=== PATIENT | female | born 1945 ===

== ENCOUNTER 2018-02-13 13:33 | Emergency (ER) | payer MEDICARE, OTHER ==
[2018-02-13 13:33] VITALS: BMI 24.7
[2018-02-13 15:06] LABS: URINE BILIRUBIN NEGATIVE (NEGATIVE); URINE BLOOD NEGATIVE (NEGATIVE); URINE GLUCOSE (UA) NEGATIVE (NEGATIVE); URINE LEUKOCYTE ESTERASE NEGATIVE Leu/uL (NEGATIVE); URINE PROTEIN TRACE mg/dL (<30 mg/dL); URINE UROBILINOGEN 0.2 E.U./dL (<1 E.U./dL)
[2018-02-13 15:12] LABS: URINE APPEARANCE CLEAR (CLEAR); URINE COLOR YELLOW (YELLOW)
[2018-02-13 15:13] LABS: URINE BACTERIA TRACE (NEG); URINE EPITHELIAL CELLS 0 - 2 /hpf (0-5); URINE RBC 0 - 2 /hpf (0-2); URINE WBC 0 - 2 /hpf (0-6)
--- NOTE | 2018-02-13 15:21 | ED PDOC ---
Arrival/HPI - General Chief Complaint: Back Pain Time Seen by Provider: 02/13/18 14:09 Historian: Patient - History of Present Illness Narrative History of Present Illness (Text): 02/13/18 72 yo female comes in for evaluation of diffuse lower back pain gradually developed for past 3 days after lifted heavy box. Pt reports, pain is localized over lower back, worse with movement. Otherwise, pt denies known direct trauma or injury, fall, fever, chills, CP, SOB, abd. pain, N/V/D, UTi sx, saddle anesthesia, incontinence, denies weakness, sensory or vascular deficits to B/L LEs. Ambulate to Ed for evaluation, not in any apparent distress. Past Medical History - Provider Review Nursing Documentation Reviewed: Yes - Travel History Have you recently traveled outside [place] w/in the past 3 mons?: No - Infectious Disease Hx of Infectious Diseases: None - Tetanus Immunization Tetanus Immunization: Unknown - Cardiac Hx Cardiac Disorders: Yes Hx Hypertension: Yes - Pulmonary Hx Respiratory Disorders: No - Neurological Hx Neurological Disorder: No - HEENT Hx HEENT Disorder: No - Renal Hx Renal Disorder: No - Endocrine/Metabolic Hx Endocrine Disorders: No - Hematological/Oncological Hx Blood Disorders: No - Integumentary Hx Dermatological Disorder: No - Musculoskeletal/Rheumatological Hx Musculoskeletal Disorders: Yes Hx Arthritis: Yes Hx Falls: No Hx Rheumatoid Arthritis: Yes - Gastrointestinal Hx Gastrointestinal Disorders: Yes Hx Gastroesophageal Reflux: Yes - Genitourinary/Gynecological Hx Genitourinary Disorders: No - Psychiatric Hx Psychophysiologic Disorder: No Hx Substance Use: No - Past Surgical History Past Surgical History: No Previous - Surgical History Other/Comment: TUBAL LIGATION - Anesthesia Hx Anesthesia: No Hx Anesthesia Reactions: No Hx Malignant Hyperthermia: No - Suicidal Assessment Feels Threatened In Home Enviroment: No Family/Social History - Physician Review Nursing Documentation Reviewed: Yes Family/Social History: No Known Family HX Smoking Status: Never Smoked Hx Alcohol Use: No Hx Substance Use: No Hx Substance Use Treatment: No Allergies/Home Meds Allergies/Adverse Reactions: Allergies No Known Allergies Allergy (Verified 02/13/18 13:51) Review of Systems - Review of Systems Constitutional: Normal Eyes: Normal ENT: Normal Respiratory: Normal Cardiovascular: Normal Gastrointestinal: Normal Genitourinary Female: Normal Musculoskeletal: Back Pain Skin: Normal. absent: Rash Neurological: Normal Endocrine: Normal Hemo/Lymphatic: Normal Psychiatric: Normal Physical Exam Vital Signs Temp Pulse Resp BP Pulse Ox 02/13/18 15:01 70 17 115/80 100 02/13/18 13:53 98.2 F 72 16 113/76 95 Temperature: Afebrile Blood Pressure: Normal Pulse: Regular Respiratory Rate: Normal Appearance: Positive for: Well-Appearing, Non-Toxic, Comfortable Pain Distress: Mild Mental Status: Positive for: Alert and Oriented X 3 - Systems Exam Head: Present: Atraumatic Conjunctiva: Present: Normal Mouth: Present: Moist Mucous Membranes Neck: Present: Trachea Midline. No: MIDLINE TENDERNESS, JVD, Bruit Respiratory/Chest: Present: Clear to Auscultation, Good Air Exchange. No: Respiratory Distress, Accessory Muscle Use Cardiovascular: Present: Regular Rate and Rhythm, Normal S1, S2. No: Murmurs Abdomen: No: Tenderness, Distention, Peritoneal Signs, Rebound, Guarding Back: Present: Paraspinal Tenderness (diffuse lumbar, no skin changes, no palpable deformity.). No: CVA Tenderness, Midline Tenderness Upper Extremity: Present: Normal ROM, NORMAL PULSES. No: Deformity Lower Extremity: Present: NORMAL PULSES, Normal ROM. No: Edema, CALF TENDERNESS , Tenderness, Deformity Neurological: Present: GCS=15, Speech Normal, Motor Func Grossly Intact, Normal Sensory Function, Norm Deep Tendon Reflexes Skin: Present: Warm, Dry, Normal Color. No: Rashes Psychiatric: Present: Alert, Oriented x 3 Medical Decision Making ED Course and Treatment: 02/13/18 on re-eval, pt is afebrile, hemodynamicaly stable. Non-toxic. Ambulatory in ED with stable gait. Neck: Supple Lungs: CTA B/L, BS equal B/L. Abd: Benign, (-) guarding, (-) rebound back: (-) CVA tenderness. Neurologicaly intact. UA review (-) Pt has clinical findings c/w lower back strain. Pt advised. ref. to f/u with PMD in 2-3 days for re-evaluation. return to ED if any worsening or new changes. - Lab Interpretations Lab Results: Lab Results 02/13/18 14:50: Urine Color Yellow, Urine Appearance Clear, Urine pH 6.0, Ur Specific [place] 1.025, Urine Protein Trace H, Urine Glucose (UA) Negative, Urine Ketones Negative, Urine Blood Negative, Urine Nitrate Negative, Urine Bilirubin Negative, Urine Urobilinogen 0.2, Ur Leukocyte Esterase Negative, Urine RBC 0 - 2, Urine WBC 0 - 2, Ur Epithelial Cells 0 - 2, Urine Bacteria Trace - Medication Orders Current Medication Orders: Discontinued Medications Tramadol HCl (Ultram) 50 mg PO STAT STA Stop: 02/13/18 14:42 Last Admin: 02/13/18 14:48 Dose: 50 mg MAR Pain Assessment Document 02/13/18 14:48 SF (Rec: 02/13/18 14:48 [id number]) Pain Reassessment Is this a pain reassessment? Yes Sleep Is patient sleeping during reassessment? No Presence of Pain Presence of Pain Yes Disposition/Present on Arrival - Present on Arrival Any Indicators Present on Arrival: No History of DVT/PE: Yes History of Uncontrolled Diabetes: No Urinary Catheter: No History of Decub. Ulcer: No History Surgical Site Infection Following: None - Disposition Have Diagnosis and Disposition been Completed?: Yes Diagnosis: Lower back pain Disposition: HOME/ ROUTINE Disposition Time: 15:17 Patient Plan: Discharge Condition: STABLE Discharge Instructions (ExitCare): Low Back Pain in Adults Print Language: SERBIAN Additional Instructions: Light duty to lower back, avoid heavy lifting, any physical activity for 1-2 weeks Take medication as need Follow up with PMD in 1-2 days for re-evaluation. return to ED if any worsening or new changes. Prescriptions: Gabapentin 300 mg PO HS #10 capsule Methocarbamol [Robaxin] 500 mg PO TID #14 tab traMADol [Ultram] 50 mg PO TID #7 tab
[2018-02-13 15:55] VITALS: O2SAT 99
[2018-02-13 16:02] VITALS: BP 110/69; PULSE 82; RESP 18; TEMP 97.6
== END 2018-02-13 16:01 | disposition home or self-care (01) ==
LOC: ED 13:33
DX: M54.5 Low back pain (principal); I10 Essential (primary) hypertension; M06.9 Rheumatoid arthritis, unspecified

== ENCOUNTER 2018-03-10 10:52 | Inpatient (IN) | payer MEDICARE, OTHER ==
[2018-03-10 11:10] VITALS: BMI 27.4
--- NOTE | 2018-03-10 12:01 | ED PDOC ---
"Arrival/HPI - General Chief Complaint: Back Pain Time Seen by Provider: 03/10/18 11:38 Historian: Patient - History of Present Illness Narrative History of Present Illness (Text): 03/10/18 11:59 A 72 year old female, whose past medical history includes arthritis, hypertension and DVT no longer on anticoagulants, presents to the emergency department complaining of right back pain x 3 weeks. Patient stated after lifting her from a wheelchair, she felt an acute pain. Patient stated pain is getting worsen, and it worsen with movement. Patient denies fever, sob , cp, palpitation, abdominal pain, urinary symptoms, or abnormal gait. Time/Duration: Other Context: Home Past Medical History - Provider Review Nursing Documentation Reviewed: Yes - Infectious Disease Hx of Infectious Diseases: None - Tetanus Immunization Tetanus Immunization: Unknown - Cardiac Hx Cardiac Disorders: Yes Hx Hypertension: Yes - Pulmonary Hx Respiratory Disorders: No - Neurological Hx Neurological Disorder: No - HEENT Hx HEENT Disorder: No - Renal Hx Renal Disorder: No - Endocrine/Metabolic Hx Endocrine Disorders: No - Hematological/Oncological Hx Blood Disorders: No - Integumentary Hx Dermatological Disorder: No - Musculoskeletal/Rheumatological Hx Musculoskeletal Disorders: Yes Hx Arthritis: Yes Hx Falls: No Hx Rheumatoid Arthritis: Yes - Gastrointestinal Hx Gastrointestinal Disorders: Yes Hx Gastroesophageal Reflux: Yes - Genitourinary/Gynecological Hx Genitourinary Disorders: No - Psychiatric Hx Psychophysiologic Disorder: No Hx Substance Use: No - Past Surgical History Past Surgical History: No Previous - Surgical History Other/Comment: TUBAL LIGATION - Anesthesia Hx Anesthesia: No Hx Anesthesia Reactions: No Hx Malignant Hyperthermia: No - Suicidal Assessment Feels Threatened In Home Enviroment: No Family/Social History - Physician Review Nursing Documentation Reviewed: Yes Family/Social History: Other (noncontributory) Smoking Status: Never Smoked Hx Alcohol Use: No Hx Substance Use: No Hx Substance Use Treatment: No Allergies/Home Meds Allergies/Adverse Reactions: Allergies No Known Allergies Allergy (Verified 02/13/18 13:51) Home Medications: Home Meds Medication Instructions Recorded Confirmed Ibuprofen [Motrin Tab] 1 tab PO PRN PRN 03/10/18 03/10/18 Review of Systems - Review of Systems Constitutional: Normal. absent: Fatigue, Weight Change, Fevers, Night Sweats Eyes: Normal ENT: Normal Respiratory: Normal. absent: SOB, Cough, Sputum Cardiovascular: Normal Gastrointestinal: Normal. absent: Abdominal Pain, Nausea, Vomiting Genitourinary Female: Normal. absent: Dysuria, Frequency, Hematuria Musculoskeletal: Back Pain Skin: Normal. absent: Rash Neurological: Normal. absent: Headache, Dizziness, Focal Weakness, Gait Changes , Speech Changes, Facial Droop, Disequilibrium, Seizure Endocrine: Normal Hemo/Lymphatic: Normal Psychiatric: Normal Physical Exam Vital Signs Temp Pulse Resp BP Pulse Ox 03/10/18 20:08 65 18 178/99 H 97 03/10/18 17:31 65 18 185/97 H 100 03/10/18 15:53 63 18 152/81 H 98 03/10/18 11:11 98.4 F 68 18 97 03/10/18 11:09 98.4 F 68 18 172/76 H 97 Temperature: Afebrile Blood Pressure: Normal Pulse: Regular Respiratory Rate: Normal Appearance: Positive for: Well-Appearing, Non-Toxic, Comfortable Pain Distress: None Mental Status: Positive for: Alert and Oriented X 3 - Systems Exam Head: Present: Atraumatic, Normocephalic Pupils: Present: PERRL Extroacular Muscles: Present: EOMI Conjunctiva: Present: Normal Mouth: Present: Moist Mucous Membranes Neck: Present: Normal Range of Motion, Trachea Midline. No: Meningeal Signs, MIDLINE TENDERNESS, Paraspinal Tenderness, Lymphadenopathy Respiratory/Chest: Present: Clear to Auscultation, Good Air Exchange. No: Respiratory Distress, Accessory Muscle Use, Wheezes, Retracting, Rhonchi Cardiovascular: Present: Regular Rate and Rhythm, Normal S1, S2. No: Murmurs Abdomen: No: Tenderness, Distention, Peritoneal Signs Back: Present: Normal Inspection, Paraspinal Tenderness ((+) moderate tenderness over right paravertebral tenderness at the level of T11, and T12). No: CVA Tenderness, Midline Tenderness Upper Extremity: Present: Normal Inspection, Normal ROM, NORMAL PULSES, Neurovascularly Intact, Capillary Refill < 2s. No: Cyanosis, Edema Lower Extremity: Present: Normal Inspection, NORMAL PULSES, Normal ROM, Neurovascularly Intact, Capillary Refill < 2 s. No: Edema Neurological: Present: GCS=15, CN II-XII Intact, Speech Normal Skin: Present: Warm, Dry, Normal Color. No: Rashes Psychiatric: Present: Alert, Oriented x 3, Normal Insight, Normal Concentration Medical Decision Making ED Course and Treatment: 03/10/18 20:55 This 72 yo female came c/o right posterior back pain . Physical exam was unremarkable except for tenderness over level T11, and T12. No skin rash. Lungs CTA b/l. Patient has a pmh dvt, so d dimer was order, as well as regular labs. D dimer was elevated. CT angio of chest to r/o PE. Patient a small amount of IV contrast extravasation during CT scan. A different IV line was used too complete CT scan. Warmth compress was applied over left arm. CT scan was negative for PE, however, it shows T12 vertebral Fx. Patient continues with back pain. I paged Dr. Grayson, however she did not call back. I paged house physician. Patient agreed with plan for observation. 03/10/18 21:[address] Jha, house doctor regarding intractable back pain. Also I reviewed CT result which shows lung nodule, density on heart atrium, and vertebral body fracture. I recommended observation, and MRI of T12. Dr. Jha agreed with plan. Re-evaluation Time: 21:06 Reassessment Condition: Re-examined, Improving,but remains with symptoms - Lab Interpretations Lab Results: 03/10/18 12:20 03/10/18 13:25 Lab Results 03/10/18 15:40: D-Dimer, Quantitative > 5250 H 03/10/18 13:25: Sodium 146, Potassium 4.0, Chloride 107, Carbon Dioxide 27, Anion Gap 15, BUN 17, Creatinine 1.1, Est GFR ( Amer) 59, Est GFR (Non- Af Amer) 49, Random Glucose 87, Calcium 9.4, Magnesium 2.0, Total Bilirubin 0.4 , AST 47 H, ALT 49, Alkaline Phosphatase 96, Total Protein 8.1, Albumin 4.1, Globulin 3.9, Albumin/Globulin Ratio 1.0 L 03/10/18 12:50: Urine Color Yellow, Urine Appearance Clear, Urine pH 7.0, Ur Specific [place] 1.010, Urine Protein Trace H, Urine Glucose (UA) Negative, Urine Ketones Negative, Urine Blood Negative, Urine Nitrate Negative, Urine Bilirubin Negative, Urine Urobilinogen 0.2, Ur Leukocyte Esterase Small H, Urine RBC 0 - 2, Urine WBC 2 - 5, Ur Epithelial Cells 1 - 3, Urine Bacteria Few 03/10/18 12:20: WBC 5.6 D, RBC 3.72, Hgb 11.9 L, Hct 35.5 L, MCV 95.4, MCH 32.0 , MCHC 33.5, RDW 13.5, Plt Count 164, MPV 11.5 H, Gran % 59.6, Lymph % (Auto) 26.5, [place] % (Auto) 10.0 H, Eos % (Auto) 3.7, Baso % (Auto) 0.2, Gran # 3.35, Lymph # (Auto) 1.5, [place] # (Auto) 0.6, Eos # (Auto) 0.2, Baso # (Auto) 0.01 I have reviewed the lab results: Yes Interpretation: Abnormal lab values - RAD Interpretation Narrative RAD Interpretations (Text): 03/10/18 20:03 EXAM: CT Angiography Chest With Intravenous Contrast FINDINGS: Pulmonary arteries: Unremarkable. No pulmonary embolism. Aorta: Atherosclerotic changes of the aorta. No thoracic aortic aneurysm. Lungs: 6 mm lung nodule near the blood vessel in the right middle lobe, there is another pleuralbased lung nodule. Three-month followup is recommended. Pleural space: Unremarkable. No significant effusion. No pneumothorax. Heart: There is a soft tissue density noted measuring 1.6 cm on image 42 series 3 ,? continuous with the left atrium on image 44. Echocardiogram evaluation is advised on non- emergent basis. Coronary artery calcification. No significant pericardial effusion. No evidence of RV dysfunction. Bones/joints: There is a fracture line noted involving the T12 vertebral body. It seen on the last images ,incompletely evaluated on this exam. CT of the thoracolumbar spine is advised No dislocation. Soft tissues: Unremarkable. Lymph nodes: Unremarkable. No enlarged lymph nodes. Liver: Fatty infiltration of the liver. Diffuse fatty infiltration of the liver. Gallbladder and bile ducts: Gallstones. KEYSHAINÉSJAREN BEYERMEN | Preliminary Radiology Report Small hiatal hernia. IMPRESSION: 1. 6 mm lung nodule near the blood vessel in the right middle lobe, there is another pleural-based lung nodule. Three-month followup is recommended. 2. There is a soft tissue density noted measuring 1.6 cm on image 42 series 3 , ? continuous with the left atrium on image 44. Echocardiogram evaluation is advised on non-emergent basis. 3. There is a fracture line noted involving the T12 vertebral body. It seen on the last images ,incompletely evaluated on this exam. CT of the thoracolumbar spine is advised . Radiology Orders: 03/10/18 16:04 ANGIO CHEST PE PROTOCOL [CT] Stat - Medication Orders Current Medication Orders: Cephalexin Monohydrate (Keflex) 500 mg PO STAT STA PRN Reason: Protocol Stop: 03/10/18 20:49 Sodium Chloride (Sodium Chloride 0.9%) 1,000 mls @ 75 mls/hr IV .[id number] NITHIN Morphine Sulfate (Morphine) 2 mg IVP Q4H PRN PRN Reason: Pain, severe (8-10) Stop: 03/11/18 09:00 Ondansetron HCl (Zofran Inj) 4 mg IVP Q4H PRN PRN Reason: Nausea/Vomiting Discontinued Medications Sodium Chloride (Sodium Chloride 0.9%) 500 mls @ 999 mls/hr IV .Q31M STA Stop: 03/10/18 19:32 Last Admin: 03/10/18 19:08 Dose: 999 mls/hr eMAR Start Stop Document 03/10/18 19:08 GMD (Rec: 03/10/18 19:08 GMD [id number]) Intravenous Solution Start Date 03/10/18 Start Time 19:08 End Date 03/10/18 End time 19:38 Total Infusion Time 30 Ketorolac Tromethamine (Toradol) 15 mg IVP STAT STA Stop: 03/10/18 19:03 Last Admin: 03/10/18 19:07 Dose: 15 mg MAR Pain Assessment Document 03/10/18 19:07 GMD (Rec: 03/10/18 19:08 D [id number]) Pain Reassessment Is this a pain reassessment? No IVP Administration Document 03/10/18 19:07 GMD (Rec: 03/10/18 19:08 GMD [id number]) Charges for Administration # of IVP Administrations 1 Disposition/Present on Arrival - Present on Arrival Any Indicators Present on Arrival: No History of DVT/PE: Yes History of Uncontrolled Diabetes: No Urinary Catheter: No History of Decub. Ulcer: No History Surgical Site Infection Following: None - Disposition Have Diagnosis and Disposition been Completed?: Yes Diagnosis: Intractable back pain, Closed fracture of thoracic vertebral body, Lung nodule Disposition: HOSPITALIZED Disposition Time: 21:19 Patient Plan: Admission Patient Problems: Current Active Problems Problem Status Onset Closed fracture of thoracic vertebral body Acute Intractable back pain Acute Lung nodule Acute Forms: [employer] (Azerbaijani)"
[2018-03-10 12:44] LABS: BASO # 0.01 K/mm3 (0.0-2.0); BASO % 0.2 % (0.0-3.0); EOS # 0.2 (0.0-0.7); EOS % 3.7 % (1.5-5.0); GRAN # 3.35 (1.4-6.5); GRAN % 59.6 % (50.0-68.0); HEMOGLOBIN 11.9 g/dL (12.0-16.0); LYMPH # 1.5 (1.2-3.4); LYMPH % 26.5 % (22.0-35.0); MEAN CELL VOLUME 95.4 fl (80.0-105.0); MEAN CORPUSCULAR HGB CONC 33.5 g/dl (31.0-37.0); MEAN PLATELET VOLUME 11.5 fl (7.0-11.0); MONO # 0.6 (0.1-0.6); RBC 3.72 10^6/uL (3.5-6.1); RED CELL DISTRIBUTION WIDTH 13.5 % (11.5-14.5); WHITE BLOOD COUNT 5.6 10^3/ul (4.5-11.0)
[2018-03-10 13:25] LABS: URINE APPEARANCE CLEAR (CLEAR); URINE BILIRUBIN NEGATIVE (NEGATIVE); URINE BLOOD NEGATIVE (NEGATIVE); URINE COLOR YELLOW (YELLOW); URINE GLUCOSE (UA) NEGATIVE (NEGATIVE); URINE LEUKOCYTE ESTERASE SMALL Leu/uL (NEGATIVE); URINE PROTEIN TRACE mg/dL (<30 mg/dL); URINE UROBILINOGEN 0.2 E.U./dL (<1 E.U./dL)
[2018-03-10 13:28] LABS: URINE BACTERIA FEW (NEG); URINE RBC 0 - 2 /hpf (0-2)
[2018-03-10 13:48] LABS: ALBUMIN 4.1 g/dL (3.0-4.8); CALCIUM 9.4 mg/dL (8.4-10.5)
[2018-03-10] MEDS ORDERED: Iohexol 350 MG/100 ML VIAL ONE ×2 (16:39→18:30)
[2018-03-10] MEDS ORDERED: Sodium Chloride 0.9% 500 ML IV STA (19:02)
[2018-03-10] MEDS ORDERED: Morphine 2 mg/ml ISec IVP PRN (20:47)
[2018-03-10] MEDS ORDERED: Sodium Chloride 0.9% 1,000 ML IV SCH (21:00)
--- NOTE | 2018-03-10 23:00 | CP.PCM.HP ---
History of Present Illness - History of Present Illness History of Present Illness: Daniel Dawson, PGY-1 History and Physical for Hospitalist Service CC: Lower back pain HPI: Patient is a 70-year-old female with a PMHx of OA, HTN, LLE DVT no longer on anticoagulation, GERD who presents with history of lower back pain for three weeks. Patient is surrounded bedside by daughter and niece, who helped provide most of the history. Patient lifted her out of a wheelchair three weeks ago, and felt sharp pain in her lower back. At that time , patient came to the ER and was sent home with pain medications. Symptoms worsened until last night , with the patient rating the pain 10/10 and patient was crying due to the excruciating pain. Patient took 800 mg of Motrin and that provided some relief. Of note, patient experienced a mechanical fall 2 years ago for which patient complains of chronic lower back pain at baseline. Patient denies headache, sore throat, cough, shortness of breath, chest pain, palpitations, abdominal pain, dysuria, polyuria, new rashes, changes in urinary or bowel habits, changes in ambulation, and numbness in the lower extremities. Past medical history: OA, DVT left peroneal, Hypertension, GERD PSH: tubal ligation Allergies: NKDA Social history: denies smoking, alcohol or drugs Family history : noncontributory, no hx of cancers Meds (provided by patient): Enalapril 10 mg PO, Xeljanz 11 mg Patient lives in [place] with her . Present on Admission - Present on Admission Any Indicators Present on Admission: Yes History of DVT/PE: Yes Review of Systems - Review of Systems Review of Systems: 12 point ROS completed and negative except as described in HPI. Past Patient History - Infectious Disease Hx of Infectious Diseases: None - Tetanus Immunizations Tetanus Immunization: Unknown - Past Social History Smoking Status: Never Smoked - CARDIAC Hx Hypertension: Yes - PULMONARY Hx Respiratory Disorders: No - NEUROLOGICAL Hx Neurological Disorder: No - HEENT Hx HEENT Problems: No - RENAL Hx Chronic Kidney Disease: No - ENDOCRINE/METABOLIC Hx Endocrine Disorders: No - HEMATOLOGICAL/ONCOLOGICAL Hx Blood Disorders: No - INTEGUMENTARY Hx Dermatological Problems: No - MUSCULOSKELETAL/RHEUMATOLOGICAL Hx Arthritis: Yes Hx Falls: Yes - GASTROINTESTINAL Hx Gastroesophageal Reflux: Yes - GENITOURINARY/GYNECOLOGICAL Hx Genitourinary Disorders: No - PSYCHIATRIC Hx Psychophysiologic Disorder: No - SURGICAL HISTORY Other/Comment: TUBAL LIGATION - ANESTHESIA Hx Anesthesia: No Hx Anesthesia Reactions: No Hx Malignant Hyperthermia: No Meds Allergies/Adverse Reactions: Allergies Allergy/AdvReac Type Severity Reaction Status Date / Time No Known Allergies Allergy Verified 02/13/18 13:51 Physical Exam - Constitutional Appears: Well, No Acute Distress - Head Exam Head Exam: ATRAUMATIC, NORMAL INSPECTION, NORMOCEPHALIC - Eye Exam Eye Exam: EOMI, Normal appearance Pupil Exam: PERRL - ENT Exam ENT Exam: Mucous Membranes Moist, Normal Exam - Neck Exam Neck exam: Positive for: Full Rom, Normal Inspection. Negative for: Tenderness - Respiratory Exam Respiratory Exam: Clear to Auscultation Bilateral, NORMAL BREATHING PATTERN. absent: Chest Wall Tenderness, Rales, Rhonchi, Wheezes, Respiratory Distress, Stridor - Cardiovascular Exam Cardiovascular Exam: RRR, +S1, +S2. absent: Gallop, Rubs - GI/Abdominal Exam GI & Abdominal Exam: Soft. absent: Distended, Firm, Guarding, Rebound, Tenderness - Back Exam Back exam: paraspinal tenderness, vertebral tenderness (TTP in lower thoracic region, R>L). absent: CVA tenderness (L), CVA tenderness (R), rash noted - Neurological Exam Neurological exam: Alert, CN II-XII Intact, Normal Gait, Oriented x3, Reflexes Normal Additional comments: full sensory and gross motor intact bilaterally in lower extremities - Psychiatric Exam Psychiatric exam: Normal Affect, Normal Mood - Skin Skin Exam: Dry, Intact, Normal Color, Warm Results - Vital Signs Recent Vital Signs: Last Vital Signs Temp 98.3 F 03/10/18 22:20 Pulse 77 03/10/18 22:20 Resp 20 03/10/18 22:20 BP 148/83 03/10/18 22:20 Pulse Ox 97 03/10/18 20:08 - Labs Result Diagrams: 03/10/18 12:20 03/10/18 13:25 Assessment & Plan - Assessment and Plan (Free Text) Assessment: 72 year old Female who presents with lower thoracic back pain. Thoracic CT angio performed in the ED showed a T12 fracture line. Plan: Lower back pain 2/2 ? T12 fracture - In ED, patient received morphine and toradol, which has controlled pain - Morphine 2q4 mg PRN and flexeril 10 mg q6h PRN for pain - f/u CXR read - D-dimer was elevated 5250 in setting of back pain and hx of DVT so CTA was ordered: 1. 6 mm lung nodule near the blood vessel in the right middle lobe, there is another pleural-based lung nodule. Three-month followup is recommended. 2. There is a soft tissue density noted measuring 1.6 cm on image 42 series 3 , ? continuous with the left atrium on image 44. Echocardiogram evaluation is advised on non-emergent basis. 3. There is a fracture line noted involving the T12 vertebral body. It seen on the last images ,incompletely evaluated on this exam. CT of the thoracolumbar spine is advised - f/u MRI thoracolumbar in AM, f/u AM labs - Neurosurgery consult ordered (Dr. Laguna) - recommendations appreciated - PT/OT consults ordered Hx of DVT - currently not on anticoagulation - CT Angio negative for PE - Lovenox 40 sc daily HTN - Lisinopril 20 mg PO - NS @ 75 mg - continue to monitor pressures Hx of GERD - Pepcid 20 BID - continue to monitor GI/DVT ppx - Pepcid 20 mg BID - Lovenox 40 mg SC HHD Patient seen, case reviewed, and plan discussed with Dr. Jha. Daniel Dawson, PGY-1
[2018-03-11 06:24] LABS: BASO # 0.01 K/mm3 (0.0-2.0); BASO % 0.1 % (0.0-3.0); EOS # 0.2 (0.0-0.7); EOS % 2.3 % (1.5-5.0); GRAN # 6.46 (1.4-6.5); GRAN % 78.9 % (50.0-68.0); HEMOGLOBIN 12.3 g/dL (12.0-16.0); LYMPH # 0.9 (1.2-3.4); LYMPH % 11.3 % (22.0-35.0); MEAN CORPUSCULAR HEMOGLOBIN 31.9 pg (25.0-35.0); MONO # 0.6 (0.1-0.6); MONO % 7.4 % (1.0-6.0); RBC 3.85 10^6/uL (3.5-6.1); RED CELL DISTRIBUTION WIDTH 13.5 % (11.5-14.5)
[2018-03-11 06:41] LABS: WHITE BLOOD COUNT 8.2 10^3/ul (4.5-11.0)
[2018-03-11 06:53] LABS: ALBUMIN 3.9 g/dL (3.0-4.8); ALT/SGPT 55 U/L (7-56); AST/SGOT 48 U/L (14-36); BLOOD UREA NITROGEN 16 mg/dL (7-21); CALCIUM 9.1 mg/dL (8.4-10.5); GFR AFRICAN-AMERICAN > 60; GFR NON-AFRICAN AMERICAN 55
--- NOTE | 2018-03-11 08:49 | RAD ---
Date of service: 03/10/2018 HISTORY: admission COMPARISON: 05/07/2016. FINDINGS: LUNGS: The lungs are well inflated and clear. PLEURA: No significant pleural effusion identified, no pneumothorax apparent. CARDIOVASCULAR: Normal. OSSEOUS STRUCTURES: No significant abnormalities. VISUALIZED UPPER ABDOMEN: Normal. OTHER FINDINGS: None. IMPRESSION: No active pulmonary disease.
[2018-03-11] MEDS: Enoxaparin 40 mg Syringe SC SCH (09:51)
--- NOTE | 2018-03-11 09:51 | CARD ---
APPROVED REPORT Date of service: 03/10/2018 EKG Measurement Heart [id number] <Conclusion> Normal sinus rhythm Minimal voltage criteria for LVH, may be normal variant Cannot rule out Anterior infarct, age undetermined Abnormal ECG
--- NOTE | 2018-03-11 10:00 | CT ---
Date of service: 03/10/2018 PROCEDURE: CT Chest with contrast (Pulmonary Angiogram) HISTORY: right back pain , elevated d dimer COMPARISON: None available. TECHNIQUE: Axial computed tomography images were obtained of the chest in the pulmonary arterial phase of enhancement. Coronal and sagittal reformatted images were created and reviewed. Intravenous contrast dose: 100 cc of Omnipaque 350 Radiation dose: Total exam DLP = 384 mGy-cm. This CT exam was performed using one or more of the following dose reduction techniques: Automated exposure control, adjustment of the mA and/or kV according to patient size, and/or use of iterative reconstruction technique. FINDINGS: PULMONARY ARTERIES: Unremarkable. No pulmonary embolism. AORTA: No acute findings. No thoracic aortic aneurysm. LUNGS: Unremarkable. No nodule, mass or pulmonary consolidation. There is a 5 mm nodule in the right middle lobe image 54 series 4 PLEURAL SPACES: Unremarkable. No effusion or pneumothorax. HEART: Unremarkable. No cardiomegaly. No significant pericardial effusion. LYMPH NODES: No lymphadenopathy. BONES, CHEST WALL: There is a questionable fracture line in the T12 vertebral body. This was incompletely evaluated on this study. OTHER FINDINGS: The report concurs with the preliminary [facility] report IMPRESSION: Unremarkable CT pulmonary angiogram. No pulmonary embolus. There is a suspected fracture line in the T12 vertebral body. This is incompletely evaluated. Clinical correlation is recommended. 5 mm nodule in the right middle lobe
--- NOTE | 2018-03-11 12:46 | CP.PCM.PN ---
<CiprianojessicaBennie - Last Filed: 03/11/18 15:08> Subjective - Date & Time of Evaluation Date of Evaluation: 03/11/18 Time of Evaluation: 13:03 - Subjective Subjective: Katjacrystalkannan Doug PGY1 Progress Note for Dr. Irvin Ms. Mckay was examined at bedside this morning. She reported continuation of her back pain, which she complains is on the right side and rates a 3/10. She denies radiation. She denies any shortness of breath, dizziness, chest pain , nausea, vomiting, diarrhea, or dysuria. Objective - Vital Signs/Intake and Output Vital Signs (last 24 hours): Temp Pulse Resp BP Pulse Ox 98.3 F 88 20 139/76 95 03/11/18 07:47 03/11/18 09:51 03/11/18 07:47 03/11/18 11:55 03/11/18 07:47 Intake and Output: 03/11/18 03/11/18 06:59 18:59 Intake Total 240 Balance 240 - Medications Medications: Current Medications Cyclobenzaprine HCl (Flexeril) 10 mg PO TID PRN PRN Reason: Pain, moderate (4-7) Enoxaparin Sodium (Lovenox) 40 mg SC DAILY [facility] PRN Reason: Protocol Last Admin: 03/11/18 09:51 Dose: 40 mg Famotidine (Pepcid) 20 mg PO 1000,2200 [facility] Last Admin: 03/11/18 09:51 Dose: 20 mg Lisinopril (Zestril) 20 mg PO DAILY [facility] Last Admin: 03/11/18 09:51 Dose: 20 mg - Labs Labs: 03/11/18 06:00 03/11/18 06:00 - Constitutional Appears: Well, No Acute Distress - Head Exam Head Exam: ATRAUMATIC, NORMOCEPHALIC - Eye Exam Eye Exam: EOMI, Normal appearance Pupil Exam: NORMAL ACCOMODATION - ENT Exam ENT Exam: Mucous Membranes Moist - Respiratory Exam Respiratory Exam: Clear to Ausculation Bilateral, NORMAL BREATHING PATTERN. absent: Rales, Rhonchi, Wheezes - Cardiovascular Exam Cardiovascular Exam: REGULAR RHYTHM, +S1, +S2 - GI/Abdominal Exam GI & Abdominal Exam: Soft, Normal Bowel Sounds. absent: Tenderness - Extremities Exam Extremities Exam: Pedal Edema - Back Exam Back Exam: tenderness. absent: vertebral tenderness Additional comments: tenderness to palpation and hypertonicity of right lower back - Neurological Exam Neurological Exam: Alert, Awake, Oriented x3, Reflexes Normal Additional comments: straight leg test negative - Psychiatric Exam Psychiatric exam: Normal Affect, Normal Mood - Skin Skin Exam: Normal Color Assessment and Plan - Assessment and Plan (Free Text) Assessment: 72 year old Female who presents with lower thoracic back pain. Thoracic CT angio performed in the ED showed a T12 fracture line. Plan: Lower back pain - secondary to muscle strain or T12 fracture - pain control changed to flexaril 5mg and warm compress - CT chest: suspected fracture in T12 vertebral body, incompletely evaluated - pending MRI T/L spine - CXR: no active disease - f/u MRI thoracolumbar in AM, f/u AM labs - Neurosurgery consulted, Dr. Luz Elena gee appreciated - consider IR consult pending MRI read - PT/OT consulted Hx of DVT - D-dimer elevated at 5250 - currently not on anticoagulation - CT Angio: 6 mm lung nodule near the blood vessel in the right middle lobe, another pleural-based lung nodule. Three-month followup recommended. Soft tissue density 1.6 cm continuous with left atrium. ECHO evaluation is advised on non-emergent basis. - CT Angio negative for PE - Lovenox 40 sc daily HTN - BP 139/76 - peak BP 185/96 before AM meds - Lisinopril 20 mg PO - continue to monitor Hx of GERD - Pepcid 20 BID - continue to monitor GI/DVT ppx - Pepcid 20 mg BID - Lovenox 40 mg SC [facility] Patient seen, case reviewed, and plan discussed with Dr. Irvin. <Gunner Irvin - Last Filed: 03/11/18 18:47> Objective - Vital Signs/Intake and Output Vital Signs (last 24 hours): Temp Pulse Resp BP Pulse Ox 98.4 F 78 18 151/84 H 100 03/11/18 17:40 03/11/18 17:40 03/11/18 17:40 03/11/18 17:40 03/11/18 17:40 Intake and Output: 03/11/18 03/11/18 06:59 18:59 Intake Total 240 Balance 240 - Medications Medications: Current Medications Acetaminophen (Tylenol 325mg Tab) 650 mg PO Q6H PRN PRN Reason: Headache Last Admin: 03/11/18 15:29 Dose: 650 mg Cyclobenzaprine HCl (Flexeril) 5 mg PO TID [facility] Last Admin: 03/11/18 18:11 Dose: 5 mg Enoxaparin Sodium (Lovenox) 40 mg SC DAILY [facility] PRN Reason: Protocol Last Admin: 03/11/18 09:51 Dose: 40 mg Famotidine (Pepcid) 20 mg PO 1000,2200 [facility] Last Admin: 03/11/18 09:51 Dose: 20 mg Lisinopril (Zestril) 20 mg PO DAILY [facility] Last Admin: 03/11/18 09:51 Dose: 20 mg - Labs Labs: 03/11/18 06:00 03/11/18 06:00 Attending/Attestation - Attestation I have personally seen and examined this patient.: Yes I have fully participated in the care of the patient.: Yes I have reviewed all pertinent clinical information, including history, physical exam and plan: Yes Notes (Text): 03/11/18 18:42 Attending note; Patient seen and examined with resident. Patient's niece by the bedside. Patient is a 72 year old Female with a PMHx of osteoarthritis, hypertension LLE DVT 3 years ago, no longer on anticoagulation, GERD who presents with history of lower back pain for three weeks. The patient usually assist moving her at home. Complaining of paraspinal tenderness. Patient was found to have elevated d-dimer in the ER. CT angios done to rule out pulmonary embolus showed possible T12 fracture. And right middle lobe 5 mm nodule. Needs follow-up as outpatient. CT angios negative for pulmonary embolus. MRI of the thoracic and lumbar spine ordered. Physical therapy evaluation requested. Continue hot compresses, Flexeril when necessary. Ambulates with physical therapy. Upon discharge the patient will follow-up with PMD . 03/11/18 18:47
[2018-03-12 07:26] LABS: BASO # 0.01 K/mm3 (0.0-2.0); BASO % 0.2 % (0.0-3.0); EOS # 0.2 (0.0-0.7); EOS % 4.4 % (1.5-5.0); GRAN # 3.54 (1.4-6.5); GRAN % 68.3 % (50.0-68.0); HEMOGLOBIN 11.8 g/dL (12.0-16.0); LYMPH # 0.8 (1.2-3.4); LYMPH % 14.9 % (22.0-35.0); MEAN CELL VOLUME 94.9 fl (80.0-105.0); MEAN CORPUSCULAR HEMOGLOBIN 31.6 pg (25.0-35.0); MEAN CORPUSCULAR HGB CONC 33.2 g/dl (31.0-37.0); MEAN PLATELET VOLUME 11.5 fl (7.0-11.0); MONO # 0.6 (0.1-0.6); MONO % 12.2 % (1.0-6.0); RBC 3.74 10^6/uL (3.5-6.1); RED CELL DISTRIBUTION WIDTH 13.5 % (11.5-14.5); WHITE BLOOD COUNT 5.2 10^3/ul (4.5-11.0)
[2018-03-12 07:41] LABS: ALBUMIN 3.9 g/dL (3.0-4.8); CALCIUM 9.2 mg/dL (8.4-10.5)
[2018-03-12] MEDS: Enoxaparin 40 mg Syringe SC SCH (09:45)
--- NOTE | 2018-03-12 09:49 | MRI ---
Date of service: 03/11/2018 PROCEDURE: MR LUMBAR SPINE WITHOUT CONTRAST HISTORY: COMPARISON: None available. TECHNIQUE: Multiecho multiplanar sequences were performed through the lumbar spine without the use of intravenous contrast. FINDINGS: Normal lumbar lordosis. There is a mild compression fracture at T12 with marrow edema and a transverse fracture line the parallels the inferior endplate. Conus medullaris unremarkable at the level of T12 Paraspinal soft tissues are unremarkable. T12-L1: No disc herniation, spinal canal stenosis or neural foraminal narrowing. L1-2: No disc herniation, spinal canal stenosis or neural foraminal narrowing. L2-3: No disc herniation, spinal canal stenosis or neural foraminal narrowing. L3-4: Asymmetric disc bulge to the left with mild foraminal narrowing L4-5: No disc herniation, spinal canal stenosis or neural foraminal narrowing. L5-S1: Moderate disc bulge with bilateral foraminal narrowing OTHER FINDINGS: None. IMPRESSION: There is a mild compression fracture at T12 with marrow edema and a transverse fracture line that parallels the inferior endplate.
--- NOTE | 2018-03-12 09:50 | MRI ---
Date of service: 03/11/2018 PROCEDURE: MR THORACIC SPINE WITHOUT CONTRAST HISTORY: COMPARISON: None available. TECHNIQUE: Multiecho multiplanar sequences were performed through the thoracic spine without the use of intravenous contrast. FINDINGS: ALIGNMENT: Normal thoracic spinal alignment. Normal thoracic kyphosis. VERTEBRA: Mild T12 compression deformity with marrow edema consistent with an acute fracture. There is a horizontally oriented fracture line. MARROW: Marrow edema at T12 PARASPINAL SOFT TISSUES: Unremarkable. CORD: Unremarkable thoracic cord. No volume loss, signal abnormality or syrinx. DISCS: Mild disc bulge at T8-9 OTHER FINDINGS: None. IMPRESSION: Acute compression fracture at T12
--- NOTE | 2018-03-12 16:47 | CP.PCM.PN ---
<CiprianojessicaBennie - Last Filed: 03/12/18 16:43> Subjective - Date & Time of Evaluation Date of Evaluation: 03/12/18 Time of Evaluation: 16:44 - Subjective Subjective: Katjacrystalkannan Mcdanieljuana PGY1 Progress Note for Dr. Irvin Ms. Mckay was examined at bedside this morning. She reported continuation of her right back pain, which she says is mildly improved. She also reports left back pain since last night. She denies any dizziness, shortness of breath, chest pain, abdominal pain, nausea, vomiting, dysuria. Objective - Vital Signs/Intake and Output Vital Signs (last 24 hours): Temp Pulse Resp BP Pulse Ox 98.2 F 70 20 159/87 H 98 03/12/18 07:44 03/12/18 09:49 03/12/18 07:44 03/12/18 09:49 03/12/18 07:44 - Medications Medications: Current Medications Acetaminophen (Tylenol 325mg Tab) 650 mg PO Q6H PRN PRN Reason: Headache Last Admin: 03/11/18 15:29 Dose: 650 mg Acetaminophen (Tylenol 325mg Tab) 650 mg PO Q6H PRN PRN Reason: Pain, Mild (1-3) Last Admin: 03/12/18 10:08 Dose: 650 mg Cyclobenzaprine HCl (Flexeril) 5 mg PO TID [facility] Last Admin: 03/12/18 13:18 Dose: 5 mg Enoxaparin Sodium (Lovenox) 40 mg SC DAILY [facility] PRN Reason: Protocol Last Admin: 03/12/18 09:45 Dose: 40 mg Famotidine (Pepcid) 20 mg PO 1000,2200 [facility] Last Admin: 03/12/18 09:45 Dose: 20 mg Lisinopril (Zestril) 20 mg PO DAILY [facility] Last Admin: 03/12/18 09:49 Dose: 20 mg - Constitutional Appears: Well, No Acute Distress - Head Exam Head Exam: ATRAUMATIC, NORMOCEPHALIC - Eye Exam Eye Exam: EOMI, PERRL Pupil Exam: NORMAL ACCOMODATION - ENT Exam ENT Exam: Mucous Membranes Moist - Respiratory Exam Respiratory Exam: Clear to Ausculation Bilateral, NORMAL BREATHING PATTERN. absent: Rales, Rhonchi, Wheezes - Cardiovascular Exam Cardiovascular Exam: REGULAR RHYTHM, +S1, +S2 - GI/Abdominal Exam GI & Abdominal Exam: Soft, Normal Bowel Sounds. absent: Distended, Firm, Tenderness - Extremities Exam Extremities Exam: Pedal Edema - Back Exam Back Exam: paraspinal tenderness. absent: CVA tenderness (L), CVA tenderness (R ), vertebral tenderness - Neurological Exam Neurological Exam: Alert, Awake, Oriented x3 - Psychiatric Exam Psychiatric exam: Normal Affect, Normal Mood - Skin Skin Exam: Normal Color Assessment and Plan - Assessment and Plan (Free Text) Assessment: 72 year old Female who presents with lower thoracic back pain. Thoracic CT angio performed in the ED showed a T12 fracture line. Plan: Lower back pain - MRI T/L spine: mild compression fracture at T12 with marrow edema and a trasverse fracture line that parallels the inferior endplate - continue flexaril 5mg and warm compress - CXR: no active disease - TLSO brace as per neurosurgery, prescribed - Neurosurgery consulted, Dr. Laguna - will see pt tomorrow, recs appreciated - PT/OT consulted, recommend exercises and gait assistance, home Hx of DVT - D-dimer elevated at 5250 - currently not on anticoagulation - CT Angio: 6 mm lung nodule near the blood vessel in the right middle lobe, another pleural-based lung nodule. Three-month followup recommended. Soft tissue density 1.6 cm continuous with left atrium. ECHO evaluation is advised on non-emergent basis. - CT Angio negative for PE - Lovenox 40 sc daily HTN - BP 159/83 - Lisinopril 20 mg PO - continue to monitor Hx of GERD - Pepcid 20 BID - continue to monitor GI/DVT ppx - Pepcid 20 mg BID - Lovenox 40 mg SC [facility] Patient seen, case reviewed, and plan discussed with Dr. Irvin. <Gunner Irvin - Last Filed: 03/14/18 13:56> Objective - Vital Signs/Intake and Output Vital Signs (last 24 hours): Temp Pulse Resp BP Pulse Ox 98.3 F 76 18 179/70 H 99 03/13/18 14:00 03/13/18 14:00 03/13/18 14:00 03/13/18 14:00 03/13/18 14:00 - Labs Labs: 03/13/18 06:45 03/13/18 06:45 Attending/Attestation - Attestation I have personally seen and examined this patient.: Yes I have fully participated in the care of the patient.: Yes I have reviewed all pertinent clinical information, including history, physical exam and plan: Yes Notes (Text): 03/14/18 13:54 Attending note; Patient seen and examined with resident. Patient is a 72 year old Female with a PMHx of osteoarthritis, hypertension LLE DVT 3 years ago, no longer on anticoagulation, GERD who presents with history of lower back pain for three weeks. The patient usually assist moving her at home. Complaining of paraspinal tenderness. Patient was found to have elevated d-dimer in the ER. CT angios done to rule out pulmonary embolus showed possible T12 fracture. And right middle lobe 5 mm nodule. Needs follow-up as outpatient. CT angios negative for pulmonary embolus. MRI of the thoracic and lumbar spine showed acute T12 fracture. TLSO brace ordered by neurosurgery today. Prescription given. Patient ablated with physical therapy yesterday. We will monitor closely Continue hot compresses, Flexeril when necessary. Upon discharge the patient will follow-up with PMD . 03/14/18 13:56
[2018-03-12 22:29] VITALS: RESP 18
[2018-03-13 07:13] LABS: BASO # 0.02 K/mm3 (0.0-2.0); BASO % 0.4 % (0.0-3.0); EOS # 0.2 (0.0-0.7); EOS % 4.1 % (1.5-5.0); GRAN # 3.24 (1.4-6.5); GRAN % 69.9 % (50.0-68.0); HEMOGLOBIN 11.9 g/dL (12.0-16.0); LYMPH # 0.6 (1.2-3.4); LYMPH % 12.5 % (22.0-35.0); MEAN CELL VOLUME 94.2 fl (80.0-105.0); MEAN CORPUSCULAR HEMOGLOBIN 31.4 pg (25.0-35.0); MEAN CORPUSCULAR HGB CONC 33.3 g/dl (31.0-37.0); MEAN PLATELET VOLUME 11.1 fl (7.0-11.0); MONO # 0.6 (0.1-0.6); MONO % 13.1 % (1.0-6.0); RBC 3.79 10^6/uL (3.5-6.1); RED CELL DISTRIBUTION WIDTH 13.4 % (11.5-14.5); WHITE BLOOD COUNT 4.6 10^3/ul (4.5-11.0)
[2018-03-13 07:47] LABS: CALCIUM 9.3 mg/dL (8.4-10.5)
--- NOTE | 2018-03-13 09:19 | CP.PCM.PN ---
Subjective - Date & Time of Evaluation Date of Evaluation: 03/13/18 Time of Evaluation: 09:15 - Subjective Subjective: Bennie Cotatangdemarco PGY1 Progress Note for Dr. Irvin Ms. Mckay was examined at bedside this morning. She reports improvement of her back pain on the right side. She complains of pain in the left back. She denies any dizziness, shortness of breath, chest pain, abdominal pain, nausea, vomiting. Objective - Vital Signs/Intake and Output Vital Signs (last 24 hours): Temp Pulse Resp BP Pulse Ox 98.1 F 72 18 128/80 94 L 03/13/18 06:00 03/13/18 06:00 03/13/18 06:00 03/13/18 06:00 03/13/18 06:00 Intake and Output: 03/13/18 03/13/18 06:59 18:59 Intake Total 780 Balance 780 - Medications Medications: Current Medications Acetaminophen (Tylenol 325mg Tab) 650 mg PO Q6H PRN PRN Reason: Headache Last Admin: 03/11/18 15:29 Dose: 650 mg Acetaminophen (Tylenol 325mg Tab) 650 mg PO Q6H PRN PRN Reason: Pain, Mild (1-3) Last Admin: 03/12/18 10:08 Dose: 650 mg Cyclobenzaprine HCl (Flexeril) 5 mg PO TID [facility] Last Admin: 03/12/18 17:47 Dose: 5 mg Enoxaparin Sodium (Lovenox) 40 mg SC DAILY [facility] PRN Reason: Protocol Last Admin: 03/12/18 09:45 Dose: 40 mg Famotidine (Pepcid) 20 mg PO 1000,2200 [facility] Last Admin: 03/12/18 21:21 Dose: 20 mg Lisinopril (Zestril) 20 mg PO DAILY [facility] Last Admin: 03/12/18 09:49 Dose: 20 mg - Labs Labs: 03/13/18 06:45 03/13/18 06:45 - Constitutional Appears: Well, No Acute Distress - Head Exam Head Exam: ATRAUMATIC, NORMOCEPHALIC - Eye Exam Eye Exam: EOMI Pupil Exam: NORMAL ACCOMODATION - ENT Exam ENT Exam: Mucous Membranes Moist - Respiratory Exam Respiratory Exam: Clear to Ausculation Bilateral, NORMAL BREATHING PATTERN - Cardiovascular Exam Cardiovascular Exam: REGULAR RHYTHM, +S1, +S2 - Extremities Exam Extremities Exam: Normal Inspection. absent: Pedal Edema - Back Exam Back Exam: paraspinal tenderness. absent: CVA tenderness (L), CVA tenderness (R ), vertebral tenderness Additional comments: tenderness to palpation of left flank, hypertonicity - Neurological Exam Neurological Exam: Alert, Awake, Oriented x3 - Psychiatric Exam Psychiatric exam: Normal Affect, Normal Mood Assessment and Plan - Assessment and Plan (Free Text) Assessment: 72 year old Female who presents with lower thoracic back pain with MRI showing T12 compression fracture. Plan: Compression Fracture of T12 - MRI T/L spine: mild compression fracture at T12 with marrow edema and a trasverse fracture line that parallels the inferior endplate - pt reports improvement of pain - continue flexaril 5mg and warm compress - CXR: no active disease - TLSO brace as per neurosurgery, prescribed - Neurosurgery consulted, Dr. Laguna - expecting visit today, recs appreciated - PT/OT consulted, recommend exercises and gait assistance, home Hx of DVT - D-dimer elevated at 5250 - currently not on anticoagulation - CT Angio: 6 mm lung nodule near the blood vessel in the right middle lobe, another pleural-based lung nodule. Three-month followup recommended. Soft tissue density 1.6 cm continuous with left atrium. ECHO evaluation is advised on non-emergent basis. - CT Angio negative for PE - Lovenox 40 sc daily HTN - BP 128/80 - Lisinopril 20 mg PO - continue to monitor Hx of GERD - Pepcid 20 BID - continue to monitor GI/DVT ppx - Pepcid 20 mg BID - Lovenox 40 mg SC [facility] Patient seen, case reviewed, and plan discussed with Dr. Irvin.
[2018-03-13] MEDS: Enoxaparin 40 mg Syringe SC SCH (09:42)
--- NOTE | 2018-03-13 12:09 | CP.PCM.CON ---
History of Present Illness - History of Present Illness History of Present Illness: SPINE Pt seen and examined. Full consult dictated. Don't believe she needs bracing at this point as she is alresdy 3+ weeks from injury and vertebral body still in good position. Told to avoid lifting/bending. Recheck in one month with new xray of T12. Past Patient History - Infectious Disease Hx of Infectious Diseases: None - Tetanus Immunizations Tetanus Immunization: Unknown - Past Social History Smoking Status: Never Smoked - CARDIAC Hx Hypertension: Yes - PULMONARY Hx Respiratory Disorders: No - NEUROLOGICAL Hx Neurological Disorder: No - HEENT Hx HEENT Problems: No - RENAL Hx Chronic Kidney Disease: No - ENDOCRINE/METABOLIC Hx Endocrine Disorders: No - HEMATOLOGICAL/ONCOLOGICAL Hx Blood Disorders: No - INTEGUMENTARY Hx Dermatological Problems: No - MUSCULOSKELETAL/RHEUMATOLOGICAL Hx Arthritis: Yes Hx Rheumatoid Arthritis: Yes - GASTROINTESTINAL Hx Gastroesophageal Reflux: Yes - GENITOURINARY/GYNECOLOGICAL Hx Genitourinary Disorders: No - PSYCHIATRIC Hx Psychophysiologic Disorder: No - SURGICAL HISTORY Other/Comment: TUBAL LIGATION - ANESTHESIA Hx Anesthesia: No Hx Anesthesia Reactions: No Hx Malignant Hyperthermia: No Meds Allergies/Adverse Reactions: Allergies Allergy/AdvReac Type Severity Reaction Status Date / Time No Known Allergies Allergy Verified 02/13/18 13:51 - Medications Medications: Current Medications Acetaminophen (Tylenol 325mg Tab) 650 mg PO Q6H PRN PRN Reason: Headache Last Admin: 03/11/18 15:29 Dose: 650 mg Acetaminophen (Tylenol 325mg Tab) 650 mg PO Q6H PRN PRN Reason: Pain, Mild (1-3) Last Admin: 03/12/18 10:08 Dose: 650 mg Cyclobenzaprine HCl (Flexeril) 5 mg PO TID [facility] Last Admin: 03/13/18 09:41 Dose: 5 mg Enoxaparin Sodium (Lovenox) 40 mg SC DAILY [facility] PRN Reason: Protocol Last Admin: 03/13/18 09:42 Dose: 40 mg Famotidine (Pepcid) 20 mg PO 1000,2200 [facility] Last Admin: 03/13/18 09:42 Dose: 20 mg Lisinopril (Zestril) 20 mg PO DAILY [facility] Last Admin: 03/13/18 09:42 Dose: 20 mg Results - Vital Signs Recent Vital Signs: Last Vital Signs Temp 98.1 F 03/13/18 06:00 Pulse 72 03/13/18 09:42 Resp 18 03/13/18 06:00 BP 128/80 03/13/18 09:42 Pulse Ox 94 L 03/13/18 06:00 - Labs Result Diagrams: 03/13/18 06:45 03/13/18 06:45 Labs: Laboratory Results - last 24 hr 03/13/18 03/13/18 06:45 06:45 WBC 4.6 RBC 3.79 Hgb 11.9 L Hct 35.7 L MCV 94.2 MCH 31.4 MCHC 33.3 RDW 13.4 Plt Count 211 MPV 11.1 H Gran % 69.9 H Lymph % (Auto) 12.5 L Merrick % (Auto) 13.1 H Eos % (Auto) 4.1 Baso % (Auto) 0.4 Gran # 3.24 Lymph # (Auto) 0.6 L Merrick # (Auto) 0.6 Eos # (Auto) 0.2 Baso # (Auto) 0.02 Sodium 143 Potassium 3.6 Chloride 109 H Carbon Dioxide 22 Anion Gap 16 BUN 16 Creatinine 1.2 Est GFR ( Amer) 53 Est GFR (Non-Af Amer) 44 Random Glucose 98 Calcium 9.3 Total Bilirubin 0.6 AST 49 H ALT 54 Alkaline Phosphatase 75 Total Protein 7.8 Albumin 4.0 Globulin 3.9 Albumin/Globulin Ratio 1.0 L
[2018-03-13] MEDS ORDERED: Calcium-Vit D 250 mg-125 Units Tab UD PO SCH (12:15)
--- NOTE | 2018-03-13 14:13 | CP.PCM.DIS ---
<Bennie Camacho - Last Filed: 03/13/18 14:38> Provider - Provider Date of Admission: 03/12/18 15:14 Attending physician: Gunner Irvin MD Primary care physician: Jose Raul Venegas MD Consults: Neurosurgery Time Spent in preparation of Discharge (in minutes): 70 Hospital Course - Lab Results Lab Results: Most Recent Lab Values WBC 4.6 10^3/ul (4.5-11.0) 03/13/18 06:45 RBC 3.79 10^6/uL (3.5-6.1) 03/13/18 06:45 Hgb 11.9 g/dL (12.0-16.0) L 03/13/18 06:45 Hct 35.7 % (36.0-48.0) L 03/13/18 06:45 MCV 94.2 fl (80.0-105.0) 03/13/18 06:45 MCH 31.4 pg (25.0-35.0) 03/13/18 06:45 MCHC 33.3 g/dl (31.0-37.0) 03/13/18 06:45 RDW 13.4 % (11.5-14.5) 03/13/18 06:45 Plt Count 211 10^3/uL (120.0-450.0) 03/13/18 06:45 MPV 11.1 fl (7.0-11.0) H 03/13/18 06:45 Gran % 69.9 % (50.0-68.0) H 03/13/18 06:45 Lymph % (Auto) 12.5 % (22.0-35.0) L 03/13/18 06:45 [place] % (Auto) 13.1 % (1.0-6.0) H 03/13/18 06:45 Eos % (Auto) 4.1 % (1.5-5.0) 03/13/18 06:45 Baso % (Auto) 0.4 % (0.0-3.0) 03/13/18 06:45 Gran # 3.24 (1.4-6.5) 03/13/18 06:45 Lymph # (Auto) 0.6 (1.2-3.4) L 03/13/18 06:45 [place] # (Auto) 0.6 (0.1-0.6) 03/13/18 06:45 Eos # (Auto) 0.2 (0.0-0.7) 03/13/18 06:45 Baso # (Auto) 0.02 K/mm3 (0.0-2.0) 03/13/18 06:45 D-Dimer, Quantitative > 5250 ng/mlDDU (0-243) H 03/10/18 15:40 Sodium 143 mmol/L (132-148) 03/13/18 06:45 Potassium 3.6 mmol/L (3.6-5.0) 03/13/18 06:45 Chloride 109 mmol/L (98-107) H 03/13/18 06:45 Carbon Dioxide 22 mmol/L (21-33) 03/13/18 06:45 Anion Gap 16 (10-20) 03/13/18 06:45 BUN 16 mg/dL (7-21) 03/13/18 06:45 Creatinine 1.2 mg/dl (0.7-1.2) 03/13/18 06:45 Est GFR ( Amer) 53 03/13/18 06:45 Est GFR (Non-Af Amer) 44 03/13/18 06:45 Random Glucose 98 mg/dL (70-110) 03/13/18 06:45 Calcium 9.3 mg/dL (8.4-10.5) 03/13/18 06:45 Phosphorus 3.2 mg/dL (2.5-4.5) 03/11/18 06:00 Magnesium 1.9 mg/dL (1.7-2.2) 03/11/18 06:00 Total Bilirubin 0.6 mg/dL (0.2-1.3) 03/13/18 06:45 AST 49 U/L (14-36) H 03/13/18 06:45 ALT 54 U/L (7-56) 03/13/18 06:45 Alkaline Phosphatase 75 U/L (38-126) 03/13/18 06:45 Total Protein 7.8 g/dL (5.8-8.3) 03/13/18 06:45 Albumin 4.0 g/dL (3.0-4.8) 03/13/18 06:45 Globulin 3.9 gm/dL 03/13/18 06:45 Albumin/Globulin Ratio 1.0 (1.1-1.8) L 03/13/18 06:45 Urine Color Yellow (YELLOW) 03/10/18 12:50 Urine Appearance Clear (CLEAR) 03/10/18 12:50 Urine pH 7.0 (4.7-8.0) 03/10/18 12:50 Ur Specific [place] 1.010 (1.005-1.035) 03/10/18 12:50 Urine Protein Trace mg/dL (<30 mg/dL) H 03/10/18 12:50 Urine Glucose (UA) Negative mg/dL (NEGATIVE) 03/10/18 12:50 Urine Ketones Negative mg/dL (NEGATIVE) 03/10/18 12:50 Urine Blood Negative (NEGATIVE) 03/10/18 12:50 Urine Nitrate Negative (NEGATIVE) 03/10/18 12:50 Urine Bilirubin Negative (NEGATIVE) 03/10/18 12:50 Urine Urobilinogen 0.2 E.U./dL (<1 E.U./dL) 03/10/18 12:50 Ur Leukocyte Esterase [place]/uL (NEGATIVE) H 03/10/18 12:50 Urine RBC 0 - 2 /hpf (0-2) 03/10/18 12:50 Urine WBC 2 - 5 /hpf (0-6) 03/10/18 12:50 Ur Epithelial Cells 1 - 3 /hpf (0-5) 03/10/18 12:50 Urine Bacteria Few (NEG) 03/10/18 12:50 - Hospital Course Hospital Course: Ms. Mckay is a 70-year-old female with a PMHx of OA, HTN, LLE DVT no longer on anticoagulation, GERD who presented with history of lower back pain for three weeks. Patient lifted her out of a wheelchair three weeks ago, and felt sharp pain in her lower back. At that time, patient came to ER and was sent home with pain medications. Symptoms worsened until last night, with the patient rating the pain 10/10 and patient was crying due to the excruciating pain. Patient took 800 mg of Motrin and that provided some relief. Of note, patient experienced a mechanical fall 2 years ago for which patient complains of chronic lower back pain at baseline. Patient denies headache, sore throat, cough, shortness of breath, chest pain, palpitations, abdominal pain, dysuria, polyuria, changes in urinary or bowel habits, changes in ambulation, and numbness in the lower extremities. In the Ed, pt receieved morphine and toradol for pain control. D-dimer was elevated at 5250, so CTA was ordered and showed a 6 mm lung nodule near the blood vessel in the right middle lobe, another pleural-based lung nodule, as well as a soft tissue density noted measuring 1.6 cm continuous with the left atrium. There was a fracture line noted involving the T12 vertebral body. Patient was admitted for T12 fracture. Upon admission, pt reported improvement of pain. MRI of T/L spine showed mild compression fracture at T12 with marrow edema and a trasverse fracture line that parallels the inferior endplate Neurosurgery was consulted and recommended continuing calcium, vitamin D, at home. Back brace or surgical intervention was not recommended at this time. Patient was advised not to lift objects and to follow up outpatient with neurosurgery in 1 month with repeat Xray, as fracture is likely subacute. PT recommended home for discharge. Upon discharge, patient was instructed on follow up and medications prescribed. Patient comprehended. Discharge Exam - Head Exam Head Exam: ATRAUMATIC, NORMOCEPHALIC - Eye Exam Eye Exam: EOMI Pupil Exam: NORMAL ACCOMODATION - Respiratory Exam Respiratory Exam: Clear to PA & Lateral, NORMAL BREATHING PATTERN. absent: Rhonchi, Wheezes, Respiratory Distress - Cardiovascular Exam Cardiovascular Exam: REGULAR RHYTHM, +S1, +S2 - GI/Abdominal Exam GI & Abdominal Exam: Normal Bowel Sounds. absent: Soft, Tenderness - Back Exam Back exam: absent: vertebral tenderness Additional comments: tenderness to palpation of left lateral back - Neurological Exam Neurological exam: Alert, Oriented x3 - Psychiatric Exam Psychiatric exam: Normal Affect, Normal Mood - Skin Skin Exam: Normal Color Discharge Plan - Discharge Medications Prescriptions: Cyclobenzaprine [Flexeril] 5 mg PO TID #9 tab Calcium Carbonate/Vitamin D [Oscal-D 250 mg-125 Units Tab] 1 tab PO DAILY #14 tab Lisinopril [Zestril] 20 mg PO DAILY #14 tab - Follow Up Plan Condition: GOOD Disposition: HOME/ ROUTINE Instructions: Upper Back Pain (DC), Vertebral Compression Fracture (DC), Preventing Falls, Pulmonary Nodule Additional Instructions: Please follow up with your primary care physician, Dr. Venegas, within 1 week. Please follow up with Dr. Baez, neurosurgery, in 1 month. To make an appointment please call . Please refrain from lifting objects at home. Please take the following medications as prescribed: Lisinopril daily Flexaril if needed for 3 days. Please be aware that this medication may cause drowsiness. Vitamin C+D daily. Please return to the emergency department if symptoms worsen. Referrals: Aba Baez MD [Staff Provider] - Jose Raul Venegas [Primary Care Provider] - <Gunner Irvin - Last Filed: 03/14/18 14:00> Provider - Provider Date of Admission: 03/12/18 15:14 Attending physician: Gunner Irvin MD Primary care physician: Jose Raul Venegas MD Hospital Course - Lab Results Lab Results: Most Recent Lab Values WBC 4.6 10^3/ul (4.5-11.0) 03/13/18 06:45 RBC 3.79 10^6/uL (3.5-6.1) 03/13/18 06:45 Hgb 11.9 g/dL (12.0-16.0) L 03/13/18 06:45 Hct 35.7 % (36.0-48.0) L 03/13/18 06:45 MCV 94.2 fl (80.0-105.0) 03/13/18 06:45 MCH 31.4 pg (25.0-35.0) 03/13/18 06:45 MCHC 33.3 g/dl (31.0-37.0) 03/13/18 06:45 RDW 13.4 % (11.5-14.5) 03/13/18 06:45 Plt Count 211 10^3/uL (120.0-450.0) 03/13/18 06:45 MPV 11.1 fl (7.0-11.0) H 03/13/18 06:45 Gran % 69.9 % (50.0-68.0) H 03/13/18 06:45 Lymph % (Auto) 12.5 % (22.0-35.0) L 03/13/18 06:45 [place] % (Auto) 13.1 % (1.0-6.0) H 03/13/18 06:45 Eos % (Auto) 4.1 % (1.5-5.0) 03/13/18 06:45 Baso % (Auto) 0.4 % (0.0-3.0) 03/13/18 06:45 Gran # 3.24 (1.4-6.5) 03/13/18 06:45 Lymph # (Auto) 0.6 (1.2-3.4) L 03/13/18 06:45 [place] # (Auto) 0.6 (0.1-0.6) 03/13/18 06:45 Eos # (Auto) 0.2 (0.0-0.7) 03/13/18 06:45 Baso # (Auto) 0.02 K/mm3 (0.0-2.0) 03/13/18 06:45 D-Dimer, Quantitative > 5250 ng/mlDDU (0-243) H 03/10/18 15:40 Sodium 143 mmol/L (132-148) 03/13/18 06:45 Potassium 3.6 mmol/L (3.6-5.0) 03/13/18 06:45 Chloride 109 mmol/L (98-107) H 03/13/18 06:45 Carbon Dioxide 22 mmol/L (21-33) 03/13/18 06:45 Anion Gap 16 (10-20) 03/13/18 06:45 BUN 16 mg/dL (7-21) 03/13/18 06:45 Creatinine 1.2 mg/dl (0.7-1.2) 03/13/18 06:45 Est GFR ( Amer) 53 03/13/18 06:45 Est GFR (Non-Af Amer) 44 03/13/18 06:45 Random Glucose 98 mg/dL (70-110) 03/13/18 06:45 Calcium 9.3 mg/dL (8.4-10.5) 03/13/18 06:45 Phosphorus 3.2 mg/dL (2.5-4.5) 03/11/18 06:00 Magnesium 1.9 mg/dL (1.7-2.2) 03/11/18 06:00 Total Bilirubin 0.6 mg/dL (0.2-1.3) 03/13/18 06:45 AST 49 U/L (14-36) H 03/13/18 06:45 ALT 54 U/L (7-56) 03/13/18 06:45 Alkaline Phosphatase 75 U/L (38-126) 03/13/18 06:45 Total Protein 7.8 g/dL (5.8-8.3) 03/13/18 06:45 Albumin 4.0 g/dL (3.0-4.8) 03/13/18 06:45 Globulin 3.9 gm/dL 03/13/18 06:45 Albumin/Globulin Ratio 1.0 (1.1-1.8) L 03/13/18 06:45 Urine Color Yellow (YELLOW) 03/10/18 12:50 Urine Appearance Clear (CLEAR) 03/10/18 12:50 Urine pH 7.0 (4.7-8.0) 03/10/18 12:50 Ur Specific [place] 1.010 (1.005-1.035) 03/10/18 12:50 Urine Protein Trace mg/dL (<30 mg/dL) H 03/10/18 12:50 Urine Glucose (UA) Negative mg/dL (NEGATIVE) 03/10/18 12:50 Urine Ketones Negative mg/dL (NEGATIVE) 03/10/18 12:50 Urine Blood Negative (NEGATIVE) 03/10/18 12:50 Urine Nitrate Negative (NEGATIVE) 03/10/18 12:50 Urine Bilirubin Negative (NEGATIVE) 03/10/18 12:50 Urine Urobilinogen 0.2 E.U./dL (<1 E.U./dL) 03/10/18 12:50 Ur Leukocyte Esterase [place]/uL (NEGATIVE) H 03/10/18 12:50 Urine RBC 0 - 2 /hpf (0-2) 03/10/18 12:50 Urine WBC 2 - 5 /hpf (0-6) 03/10/18 12:50 Ur Epithelial Cells 1 - 3 /hpf (0-5) 03/10/18 12:50 Urine Bacteria Few (NEG) 03/10/18 12:50 Attending/Attestation - Attestation I have personally seen and examined this patient.: Yes I have fully participated in the care of the patient.: Yes I have reviewed all pertinent clinical information, including history, physical exam and plan: Yes Notes (Text): 03/14/18 13:59 Attending note; Patient seen and examined with resident. Patient is a 72 year old Female with a PMHx of osteoarthritis, hypertension LLE DVT 3 years ago, no longer on anticoagulation, GERD who presents with history of lower back pain for three weeks. The patient usually assist moving her at home. Complaining of paraspinal tenderness. Patient was found to have elevated d-dimer in the ER. CT angios done to rule out pulmonary embolus showed possible T12 fracture. And right middle lobe 5 mm nodule. Needs follow-up as outpatient. CT angios negative for pulmonary embolus. MRI of the thoracic and lumbar spine showed acute T12 fracture. Patient was evaluated by spine surgeon Dr. Baez today. The fracture looks like subacute fracture. Does not need brace. Prescription given. Avoid lifting. Needs follow-up with Dr. Baez in one month. Needs repeat x-ray in 1 month. Continue physical therapy. patient will be discharged home today. Upon discharge the patient will follow-up with PMD . 03/14/18 13:59
[2018-03-13 14:33] VITALS: BP 179/70; PULSE 76; TEMP 98.3; O2SAT 99
--- NOTE | 2018-03-13 22:54 | CON ---
Copied To: Aba Baez MD Attending MD: Aba Baez MD DATE: 03/13/2018 REASON FOR CONSULTATION: Fracture, T12. HISTORY OF PRESENT ILLNESS: The patient is a 72-year-old woman who states that three weeks ago while lifting her invalid , she felt a sharp pain in her back. She states the pain was severe at the time, but now the pain really is not too bad at all. She gets pain occasionally, but it is controlled with just regular Tylenol. She denies any radicular complaints. No loss of bowel or bladder control. She has been able to ambulate in the hallway twice around the floor. PAST MEDICAL HISTORY: Significant for hypertension, left leg DVT, GERD. MEDICATIONS: Listed on the chart. ALLERGIES: NO KNOWN MEDICAL ALLERGIES. PAST SURGICAL HISTORY: Significant for tubal ligation. SOCIAL HISTORY: She denies smoking, alcohol, or drugs. PHYSICAL EXAMINATION: On examination, she has no real tenderness to palpation in the spinous processes. She does complain of a little pain radiating around her lower rib cage. No complaints of pain or tenderness in the lower lumbar or lumbosacral region. She moves both lower extremities actively. Her sensory is intact to light touch. She has excellent motor strength distally. Good distal pulses. IMAGING: She had MRIs of the thoracic and lumbar spine done two days ago, that study showed a mild compression fracture at T12. No obvious posterior body disruption. It really seems to be more into the anteroposterior endplate. She has a Schmorl's node from the 3, 4 disk into the body of L4, but no acute changes to indicate this is a new process. There appears to be in the T2 images some increased signal in the entire body of L1, but no obvious deficits on the T1 imaging and no mention was made in the radiologist report. She has some disk bulging particularly at 3,4 with some mild stenosis at that level. IMPRESSION: Impression is that of mild compression fracture at T12. These studies were done already three weeks after the injury and there is no significant disruption or anything else to speak of, so at this point, I do not even think she needs a brace. She needs to avoid bending at the waist and no lifting. She cannot be lifting her out of his wheelchair to place him in the chair anymore and she understands this. She states there is a homemaker to help with this now. I think she is okay to be discharged if she is cleared by Physical Therapy. She can be seen in a month's time with a recheck x-ray of her lumbar spine just to make certain that there is no further collapse of the body or anything of that nature. Certainly if her pain markedly increases or she starts getting any other neurologic complaints, then she should be seen immediately. Thank you for allowing me to participate in the care of your patient. Aba Baez MD
== END 2018-03-13 17:53 | disposition home or self-care (01) | DRG 552 ==
LOC: ED 10:52 → ERH 21:18 → 5RNO 22:23 → OBSVTOIN 03-12 15:14
PROVIDERS: ADMIT Internal Medicine; ATTEND Internal Medicine
DX: S22.089A Unspecified fracture of T11-T12 vertebra, initial encounter for closed fracture (principal); K21.9 Gastro-esophageal reflux disease without esophagitis; I10 Essential (primary) hypertension; M06.9 Rheumatoid arthritis, unspecified; R79.1 Abnormal coagulation profile; X50.0XXA Overexertion from strenuous movement or load, initial encounter; Y92.009 Unspecified place in unspecified non-institutional (private) residence as the place of occurrence of the external cause; Z86.718 Personal history of other venous thrombosis and embolism